=== PATIENT | male | born 1940 | race Caucasian/White ===

== ENCOUNTER → 2016-08-28 | Outpatient (CLI) | payer MEDICARE, OTHER ==
[~2016-08-28] MED LIST: ALDACTONE25 MG PO; ALEVE220 MG PO; APRESOLINE50 MG PO; ASPIRIN LO-DOSE81 MG PO; COZAAR100 MG PO; DURAGESIC 25MC25 MCG TOP; LEVOTHROID(SYN75 MCG PO; MULTI VITAMIN1 EACH PO; NORCO 5-325 MG1 TAB PO; OCUVITE WITH L1 EACH PO; TOPROL XL 5050 MG PO; TYLENOL EXTRA500 MG PO; VITAMIN D1000 UNIT PO; ZOCOR40 MG PO
[2016-08-28 13:37] LABS: PROTIME 10.6 SECONDS (9.6-11.1)
== END | disposition disaster alternative care site (69) ==
LOC: LGSMG 13:26
PROVIDERS: Physician Assistant Medical
DX: Z01.812 Encounter for preprocedural laboratory examination (principal)

== ENCOUNTER → 2016-12-31 | Outpatient (CLI) | payer MEDICARE, OTHER ==
[2016-12-31 16:46] LABS: INR - (THERAPEUTIC) 0.98 (0.92-1.07); PROTIME 10.3 SECONDS (9.8-11.4)
== END | disposition disaster alternative care site (69) ==
LOC: LGSMG 16:29
PROVIDERS: Internal Medicine Nephrology
DX: Z00.00 Encounter for general adult medical examination without abnormal findings (principal); Z01.818 Encounter for other preprocedural examination